=== PATIENT | male | born 1990 | race Caucasian/White ===

== ENCOUNTER → 2017-07-08 14:49 | Emergency (ER) | payer SELFPAY | END | disposition home or self-care (01) | LOC: OHCORT 14:49 | DX: Z02.5 Encounter for examination for participation in sport (principal) ==

== ENCOUNTER 2019-02-12 14:35 | Emergency (ER) | payer BC ==
[2019-02-12 14:53] VITALS: BP 141/86
--- NOTE | 2019-02-12 15:08 | UC ---
Skin Complaint HPI - HPI Summary HPI Summary: Pt states he hit his lower lip on a door a few days ago and then it swelled up and someone told him he might have gotten a cold sore. He applied Abreva to it and it is much better today but he wanted it checked. - History of Current Complaint Chief Complaint: UCSkin Time Seen by Provider: 02/12/19 14:55 Stated Complaint: LOWER LIP CONCERN Hx Obtained From: Patient Onset/Duration: Sudden Onset, Other - Started as a small cut to his lower lip Skin Exposure Onset/Duration: Days Ago Timing: Constant Onset Severity: Mild Current Severity: Mild Pain Intensity: 0 Location: Other - Lower lip Aggravating Factor(s): Nothing Alleviating Factor(s): Nothing Associated Signs & Symptoms: Positive: Negative - Allergy/Home Medications Allergies/Adverse Reactions: Allergies Allergy/AdvReac Type Severity Reaction Status Date / Time amoxicillin Allergy Intermediate Hives Verified 02/12/19 14:49 procaine [From Novocain] Allergy Hives Verified 02/12/19 14:49 PMH/Surg Hx/FS Hx/Imm Hx Previously Healthy: Yes - Surgical History Surgical History: None - Family History Known Family History: Positive: Non-Contributory - Social History Alcohol Use: Weekly Alcohol Amount: WEEKENDS Substance Use Type: None Smoking Status (MU): Never Smoked Tobacco Type: Smokeless Tobacco Amount Used/How Often: 1/4 tin per day - Immunization History Most Recent Tetanus Shot: pt does not know Review of Systems All Other Systems Reviewed And Are Negative: Yes Skin: Positive: Other - Cut to lower lip which became swollen and developed some scabs which the patient keeps picking. Is Patient Immunocompromised?: No Physical Exam Triage Information Reviewed: Yes Appearance: Well-Appearing, No Pain Distress, Well-Nourished Vital Signs: Initial Vital Signs Temp 97.9 F 02/12/19 14:50 Pulse 79 02/12/19 14:50 Resp 16 02/12/19 14:50 BP 141/86 02/12/19 14:50 Pulse Ox 100 02/12/19 14:50 Vital Signs Reviewed: Yes Skin: Positive: Other - 3 small scabbed areas and no erythema, appears to be healing nicely. This does not appear to be herpes. Course/Dx - Course Course Of Treatment: Stop picking the scabs. This area is healing. - Diagnoses Provider Diagnosis: Healing laceration Discharge - Sign-Out/Discharge Documenting (check all that apply): Patient Departure All imaging exams completed and their final reports reviewed: No Studies - Discharge Plan Condition: Good Disposition: HOME Patient Education Materials: Oral Herpes Simplex Virus Infections (ED) Referrals: No Primary Care Phys,NOPCP [Primary Care Provider] - [facility] [Outside] Additional Instructions: Leave the area alone and stop picking the scabs. Follow up at the clinic if any worsening of symptoms, no kissing or sharing eating or drinking utensils until cleared. - Billing Disposition and Condition Condition: GOOD Disposition: Home - Attestation Statements Provider Attestation: I was available for consult. This patient was seen by the ILDEFONSO. The patient was not presented to, seen by, or examined by me. -Brittny
== END 2019-02-12 15:18 | disposition home or self-care (01) ==
LOC: UCCORT 14:35
DX: S01.511D Laceration without foreign body of lip, subsequent encounter (principal); Z88.0 Allergy status to penicillin; X58.XXXD Exposure to other specified factors, subsequent encounter
CPT/HCPCS: 99211; G0463